=== PATIENT | male | born 1950 | race Caucasian/White ===

== ENCOUNTER → 2017-01-22 | Outpatient (CLI) | payer OTHER ==
--- NOTE | 2017-01-22 13:36 | DI ---
PA /LATERAL CHEST X-RAY, 01/22/2017 1:04 PM : Clinical History: Cough. Previous Exam: None at this facility. There is no acute soft tissue or bony abnormality. Heart size is normal. Lungs are clear. Mediastinal structures are normal. There are no pulmonary nodules. Reading: Normal chest x-ray.
== END ==
LOC: LAB 12:51
PROVIDERS: ATTEND Obstetrics & Gynecology Gynecology
DX: R05 Cough (principal)
CPT/HCPCS: 71020